=== PATIENT | female | born 1990 | race Two or more races ===

== ENCOUNTER 2025-05-09 03:46 | Emergency (ER) | payer MEDICAID, SELFPAY ==
[2025-05-09 03:48] VITALS: BMI 38.5
[2025-05-09 03:56] VITALS: BP 124/77; PULSE 87; RESP 18; TEMP 36.7; O2SAT 98
--- NOTE | 2025-05-09 04:01 | XR_ITS ---
EXAMINATION: Ankle, right 3 views . Technique: Ankle AP, oblique, lateral 3 views Date and time of exam: May 09, 2025 0411 hours INDICATIONS: Patient fell today with injury to the ankle, ankle pain. FINDINGS: Lateral malleolar soft tissue swelling No occult fracture or dislocation IMPRESSION: No ankle fracture or dislocation
--- NOTE | 2025-05-09 04:01 | PD.EDANKLE ---
Lower Extremity Injury RME/HPI General Chief Complaint: Ankle/Foot Injury Stated Complaint: RIGHT ANKLE SWELLING Time Seen by Provider: 05/09/25 04:00 Arrival date/time: 05/09/25 03:46 35F with no significant PMH presents to ED with friend for R ankle swelling after trip and fall. Patient admits she's been drinking but she and friend confirm she did not hit her head. Limitations: no limitations Related Data Home Medications ?Medication ?Instructions ?Recorded ?Confirmed fesoterodine 4 mg tablet,extended 4 mg PO QDAY 03/30/21 03/30/21 release 24 hr (Toviaz) ibuprofen 800 mg tablet 800 mg PO BID 03/30/21 03/30/21 Previous Rx's ?Medication ?Instructions ?Recorded amoxicillin 875 mg tablet 875 mg PO BID #20 tabs 01/13/22 hydrocodone 5 mg-acetaminophen 325 1 tab PO Q6H PRN pain #10 tabs 01/13/22 mg tablet ibuprofen 600 mg tablet 600 mg PO TID PRN pain #30 tabs 08/13/22 Allergies Allergy/AdvReac Type Severity Reaction Status Date / Time No Known Allergies Allergy Verified 05/09/25 03:47 Review of Systems Review of Systems Systems Reviewed: All systems reviewed, normal except as documented Constitutional Constitutional: Reports system reviewed and no additional complaints, except as documented, Denies fever(s) and Denies headache(s) ENT Ears, Nose, Mouth, and Throat: Denies disequilibrium and Denies headache(s) Cardiovascular Cardiovascular: Reports system reviewed and no additional complaints, except as documented, Denies chest pain and Denies dyspnea Respiratory Respiratory: Reports system reviewed and no additional complaints, except as documented, Denies cough and Denies dyspnea Gastrointestinal Gastrointestinal: Reports system reviewed and no additional complaints, except as documented, Denies abdominal pain, Denies nausea and Denies vomiting Musculoskeletal Musculoskeletal: Reports as per HPI, Reports arthralgias and Reports joint swelling Neurologic Neurologic: Reports system reviewed and no additional complaints, except as documented, Denies confusion, Denies disequilibrium and Denies headache(s) Psychiatric Psychiatric: Denies confusion Past Medical History Past Medical History CARDIAC: Negative Cardiac Disorders or Congestive Heart Failure RESPIRATORY: Negative Chronic Obstructive Pulmonary Disease (COPD) or Asthma GENITOURINARY: Negative Renal Disease ENDOCRINE: Negative Diabetes Mellitus Type 1 or Diabetes Mellitus Type 2 HEMATOLOGIC: Negative Sickle Cell Disease Surgical History SURGICAL: Positive Section Social History SMOKING STATUS: Never smoker ED Exam General Limitations: Present no limitations General appearance: Present alert and in no apparent distress Head Head exam: Present atraumatic Eye Eye exam: Present normal appearance, PERRL and EOMI ENT ENT exam: Present normal exam, normal oropharynx and mucous membranes moist Neck Neck exam: Present normal inspection, full ROM and trachea midline Chest Chest inspection: Present normal inspection and symmetric chest wall rise Respiratory Respiratory exam: Present normal lung sounds bilaterally Cardiovascular Cardiovascular exam: Present regular rate, normal rhythm and normal heart sounds Abdominal Exam Abdominal exam: Present soft and normal bowel sounds Extremities Exam Extremities exam: Present full ROM Expanded Lower Extremity Exam Ankle exam: Present full ROM (R), tenderness and swelling Back Exam Back exam: Present normal inspection and full ROM Neurological Exam Neurological exam: Present alert, oriented X3 and CN II-XII intact Psychiatric Psychiatric exam: Present normal affect and normal mood Skin Skin exam: Present warm, dry, intact and normal color Course Quality Measures none Orders Category Date Time Status rosalia wrap [Splint / Immobilizer] STAT Care 05/09/25 05:08 Active XR ankle comp RT min 3V Stat Exams 05/09/25 04:01 Taken Naproxen [Naprosyn] Med 05/09/25 05:04 Once 500 mg PO X1 ONE Vital Signs Vital signs: Vital Signs Temperature 98.1 F 05/09/25 03:56 Pulse Rate 87 05/09/25 03:56 Respiratory Rate 18 05/09/25 03:56 Blood Pressure 124/77 05/09/25 03:56 Pulse Oximetry (%) 98 05/09/25 03:56 Oxygen Delivery Method Room Air 05/09/25 03:56 O2 at 98% on RA and WNLs Extremity Injury, Lower MDM Narrative MDM Narrative:: 35F with no significant PMH presents to ED with friend for R ankle swelling after trip and fall. Patient admits she's been drinking but she and friend confirm she did not hit her head. Physical exam reveals R ankle swelling and tenderness. ROM and gait mostly intact. Patient is afebrile, calm, but mildly intoxicated. XR no fx. Given ROSALIA, meds, and correctional counselor. Patient data External records reviewed:: [facility] previous records Clinical information provided by:: patient and friend Social determinants that could affect healthcare access:: none Patient has the following chronic illnesses:: none How is presenting disease/condition affected by chronic disease/condition?: no chronic disease Evaluation data The following diagnostics were reviewed and interpreted by me:: radiology exam(s) Lab and/or radiology exams considered but not ordered:: ordered Interpretation Summary: above Medications / Prescriptions Medications or Prescriptions considered but not ordered:: not rodered Medication administrations:: Medication Administration History Naproxen (Naproxen 250 Mg Tablet) 500 mg PO X1 ONE Stop: 05/09/25 05:05 n/a Consultations Consultation(s) initiated? (list below): No Diagnosis Extremity Injury, Lower Differential Diagnosis: ankle sprain and strain, acute internal derangement of knee, puncture wound of foot, fracture of toe and ankle fracture Most likely diagnosis given after review of the tests above:: ankle sprain and strain Admission Indicated Admission indicated?: not indicated Admission Request Was there a request for admission?: No Disposition Plan Disposition Plan: Discharge Discharge Attestation Discharge Attestation: The patient and all family members were given an opportunity to ask questions and understood the discharge instructions. Discharge instructions specifically effects, indications for sooner follow up or return to the emergency department, and the expected course of current diagnosis. Patient condition: Stable Discharge Plan Plan Patient Disposition: HOME (Self Care) Discharge Disposition comment: Stable Prescriptions/Referrals Prescriptions/Med Rec: No Action ibuprofen 800 mg tablet 800 mg PO BID Toviaz 4 mg tablet extended release 24 hr 4 mg PO QDAY amoxicillin 875 mg tablet 875 mg PO BID Qty: 20 0RF hydrocodone-acetaminophen 5-325 mg tablet 1 tab PO Q6H MDD 3 PRN (Reason: pain) Qty: 10 0RF ibuprofen 600 mg tablet 600 mg PO TID PRN (Reason: pain) Qty: 30 0RF Referrals: No Primary/Family,Physician [Primary Care Provider] - In 1 week Problem List Clinical Impression: Ankle sprain and strain Patient/Caregiver Discharge Instructions Education Materials: ED Ankle Sprain (Adult) Additional Instructions: Please follow-up with PCP within 24-48 hours and return immediately if symptoms worsen. If problem persists, recommend outpatient PT and/or MRI follow-up. In the meantime, rest, use ice/heat, and/or compression. Print Language: Bulgarian Stand Alone Forms: Patient Portal Info Letter JOLENE/LINDA Supervising Physician JOLENE/LINDA Supervising Physician: Dr. Brown
--- NOTE | 2025-05-09 05:05 | PRELIM_ITS ---
Radiographs of the right ankle joint (3 views). May 09, 2025 at 0411 hours Clinical history: Fall Comparison: No prior study is available for comparison. Findings: No acute fracture or dislocation. Soft tissue edema. Probable ankle joint effusion. Impression: 1. No evidence of fracture or dislocation. 2. Soft tissue edema. 3. Probable ankle joint effusion. Correlation with MRI for further evaluation is recommended. Report Electronically Signed By: Jose Perales 05/09/2025 5:04:58 AM [EST]
[2025-05-09 05:20] VITALS: BP 106/71; PULSE 86; RESP 17; TEMP 36.7; O2SAT 96
[2025-05-09] MEDS: NAPROXEN 250 MG TABLET 500 MG PO (05:22)
[2025-05-09] MEDS: ONDANSETRON ODT 4 MG TABRAP PO (05:29)
== END 2025-05-09 05:35 | disposition home or self-care (01) ==
PROVIDERS: Emergency Provider Emergency Medicine
DX: S93.401A Sprain of unspecified ligament of right ankle, initial encounter (principal); S96.911A Strain of unspecified muscle and tendon at ankle and foot level, right foot, initial encounter; W01.0XXA Fall on same level from slipping, tripping and stumbling without subsequent striking against object, initial encounter
CPT/HCPCS: 73610; 99283; Q0162; A9270